=== PATIENT | female | born 1995 | race African-American/Black ===

== ENCOUNTER 2018-07-26 08:30 | Emergency (ER) | payer OTHER ==
[2018-07-26 08:38] VITALS: BP 110/71
--- NOTE | 2018-07-26 09:06 | ER Document Report ---
HPI - HPI Patient complains to provider of: Left shoulder injury Onset: This morning - 05 29 Pain Level: 4 Context: 22-year-old female that works for [employer] [place] [facility] had a large hook hit her left posterior shoulder. She is complaining of pain and stinging to the area. She denies . Associated Symptoms: None Exacerbated by: Movement Relieved by: Denies Similar symptoms previously: No Recently seen / treated by doctor: No - ROS ROS below otherwise negative: Yes Systems Reviewed and Negative: Yes All other systems reviewed and negative - REPRODUCTIVE Reproductive: DENIES: : - MUSCULOSKELETAL Musculoskeletal: REPORTS: Extremity pain - left shoulder Past Medical History - General Information source: Patient - Social History Smoking Status: Never Smoker Chew tobacco use (# tins/day): No Frequency of alcohol use: None Drug Abuse: None Lives with: Family Family History: Reviewed & Not Pertinent Patient has suicidal ideation: No Patient has homicidal ideation: No - Medical History Medical History: Negative Renal/ Medical History: Denies: Hx Peritoneal Dialysis Surgical Hx: Negative Vertical Provider Document - CONSTITUTIONAL Agree With Documented VS: Yes Exam Limitations: No Limitations - INFECTION CONTROL TRAVEL OUTSIDE OF THE [place] IN LAST 30 DAYS: No - MUSCULOSKELETAL/EXTREMETIES Musculoskeletal/Extremeties: MAEW, FROM, Tender - soft tissue posterior shoulder , trapezius, No Edema. negative: Eccymosis - NEURO Level of Consciousness: Awake Motor/Sensory: No Motor Deficit, No Sensory Deficit - DERM Integumentary: No Rash Course - Re-evaluation Re-evalutation: 07/26/18 Final x-ray report is negative per rad, pt wants off work until tuesday - Vital Signs Vital signs: Temp Pulse Resp BP Pulse Ox 98.1 F 72 14 110/71 98 07/26/18 08:36 07/26/18 08:36 07/26/18 08:36 07/26/18 08:36 07/26/18 08:36 Discharge - Discharge Clinical Impression: Left shoulder contusion Condition: Good Disposition: HOME, SELF-CARE Instructions: Contusion ([facility]), Ibuprofen (General) ([facility]) Additional Instructions: motrin for pain to er any concerns copy of negative imaging report given to you Prescriptions: Ibuprofen [Motrin 600 mg Tablet] 600 mg PO Q8HP PRN #30 tablet PRN Reason: Forms: Return to Work
[2018-07-26] MEDS ORDERED: IBUPROFEN 600 MG TABLET PO ONE (09:11)
--- NOTE | 2018-07-26 10:27 | RADIOLOGY REPORT (SQ) ---
EXAM DESCRIPTION: SHOULDER LEFT 2 OR MORE VIEWS COMPLETED DATE/TIME: 07/26/2018 10:05 am REASON FOR STUDY: hook hit scapula injury 3 days ago, continued pain COMPARISON: None. NUMBER OF VIEWS: Three views. TECHNIQUE: Internal rotation, external rotation, and Y view images acquired of the left shoulder. LIMITATIONS: None. FINDINGS: MINERALIZATION: Normal. BONES: No acute fracture or dislocation. No worrisome bone lesions. JOINTS: No dislocation. VISUALIZED LUNGS AND RIBS: No pneumothorax. No rib fracture. SOFT TISSUES: No radiopaque foreign body. OTHER: No other significant finding. IMPRESSION: NEGATIVE STUDY OF THE LEFT SHOULDER. NO RADIOGRAPHIC EVIDENCE OF ACUTE INJURY. TECHNICAL DOCUMENTATION: JOB ID: [id number] [employer]- All Rights Reserved Reading location - IP/workstation name: [email or web address]
== END 2018-07-26 10:46 | disposition home or self-care (01) ==
LOC: ER 08:30
DX: S40.012A Contusion of left shoulder, initial encounter (principal); W22.8XXA Striking against or struck by other objects, initial encounter; Y99.0 Civilian activity done for income or pay
CPT/HCPCS: 99283

== ENCOUNTER 2020-10-21 10:29 | Inpatient (IN) | payer MEDICAID ==
[2020-10-21] MEDS ORDERED: RINGERS SOLUTION,LACTATED 1,000 ML IV ONE (10:50)
[2020-10-21 11:37] LABS: ABSOLUTE BASOPHILS # (AUTO) 0.1 10^3/uL (0.0-0.2); ABSOLUTE LYMPHOCYTES (AUTO) 1.6 10^3/uL (0.5-4.7); ABSOLUTE MONOCYTES (AUTO) 0.8 10^3/uL (0.1-1.4); ABSOLUTE NEUT (AUTO) 4.1 10^3/uL (1.7-8.2); BASOPHILS % (AUTO) 0.9 % (0-2); EOSINOPHILS % (AUTO) 0.6 % (0-6); HEMATOCRIT 34.5 % (36.0-47.0); HEMOGLOBIN 11.8 g/dL (12.0-15.5); LYMPHOCYTES % (AUTO) 24.2 % (13-45); MEAN CORPUSCULAR HEMOGLOBIN 30.9 pg (27.0-33.4); MEAN CORPUSCULAR HGB CONC 34.3 g/dL (32.0-36.0); MEAN CORPUSCULAR VOLUME 90 fl (80-97); MONOCYTES % (AUTO) 11.6 % (3-13); PLATELET COUNT 227 10^3/uL (150-450); RED BLOOD COUNT 3.82 10^6/uL (3.72-5.28); RED CELL DISTRIBUTION WIDTH 17.1 % (11.5-14.0); SEGMENTED NEUTROPHILS % (AUTO) 62.7 % (42-78); TOTAL CELLS COUNTED % (AUTO) 100 %; WHITE BLOOD COUNT 6.5 10^3/uL (4.0-10.5)
[2020-10-21 12:03] LABS: ALBUMIN 3.6 g/dL (3.5-5.0); ALKALINE PHOSPHATASE 170 U/L (38-126); ANION GAP 11 (5-19); ASPARTATE AMINO TRANSFERASE 23 U/L (14-36); BILIRUBIN,DIRECT 0.1 mg/dL (0.0-0.4); BILIRUBIN,TOTAL 0.4 mg/dL (0.2-1.3); BLOOD UREA NITROGEN 7 mg/dL (7-20); CALCIUM 9.5 mg/dL (8.4-10.2); CARBON DIOXIDE 19 mmol/L (22-30); CHLORIDE 104 mmol/L (98-107); GLUCOSE 84 mg/dL (75-110); POTASSIUM 4.1 mmol/L (3.6-5.0); TOTAL PROTEIN 6.7 g/dL (6.3-8.2); URIC ACID 4.4 mg/dL (2.5-6.2)
[2020-10-21 12:04] LABS: URINE AMPHETAMINES SCREEN NEGATIVE; URINE BARBITURATES SCREEN NEGATIVE; URINE BENZODIAZEPINES SCREEN NEGATIVE; URINE COCAINE SCREEN NEGATIVE; URINE METHADONE SCREEN NEGATIVE; URINE PHENCYCLIDINE SCREEN NEGATIVE
[2020-10-21 12:11] LABS: URINE MARIJUANA (THC) SCREEN NEGATIVE
[2020-10-21] MEDS ORDERED: MISOPROSTOL 0.1 MG TABLET ONE ×2 (12:14→13:01)
[2020-10-21] MEDS ORDERED: MISOPROSTOL 0.1 MG TABLET PV ONE (12:15)
[2020-10-21] MEDS ORDERED: MISOPROSTOL 0.1 MG TABLET PO ONE (13:04)
--- NOTE | 2020-10-21 16:19 | Admission Physical ---
Datetime Report Generated by CPN: 10/21/2020 16:19 CURRENT ADMISSION Chief Complaint: Scheduled Induction of Labor Indication for Induction: Gestational HTN Admit Impression : Term, Intrauterine ; No Active Labor Admit Plan: Admit to Unit; Initiate Labor Protocol ALLERGIES Medication Allergies: No Medication Allergies: No Known Allergies (10/21/2020) Latex: No Latex Allergies OBSTETRICAL HISTORY EDC: 10/25/2020 00:00 : 1 Para: 0 Term: 0 : 0 SAB: 0 IAB: 0 Ectopic: 0 Livin Cesareans: 0 VBACs: 0 Multiple Births: 0 Gestational Diabetes: No Rh Sensitization: No Incompetent Cervix: No ANTHONY: No Infertility: No ART Treatment: No Uterine Anomaly: No IUGR: No Hx Previous C/S: No Macrosomia: No Hx Loss/Stillborn: No PIH: No Hx : No Placenta Previa/Abruption: No Depression/PP Depression: No PTL/PROM: No Post Hemorrhage: No Obstetrical History Comments: G1- Current GHTN SEE RECORDS Alcohol: No Marijuana : No Cocaine: No Other Illicit Drugs: No Cigarettes: Never Smoker. 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: No Heart Disease: No Hosp/Surgery: No Autoimmune Disorder: No Anesthetic Complications: No Kidney Disease: No Abnormal Pap Smear: No Neuro/Epilepsy: No Psychiatric Disorders: No Other Medical Diseases: No Hepatitis/Liver Disease: No Significant Family History: No Varicosities/Phlebitis: No Trauma/Violence : No Thyroid Dysfunction: No INFECTIOUS HISTORY Gonorrhea: No Genital Herpes: No Chlamydia: No Tuberculosis: No Syphilis: No Hepatitis: No HIV/AIDS Exposure: No Rash or Viral Illness: No HPV: No PHYSICAL EXAM General: Normal HEENT: Normal Neurologic: Normal Thyroid: Deferred Heart: Normal Lungs: Normal Breast: Deferred Back: Normal Abdomen: Normal Genitourinary Exam: Normal Extremities: Normal DTRs: Normal Pelvic Type: Adequate Vital Signs: Reviewed Details Vital Signs: some mild range BPs VAGINAL EXAM Dilatation: 1 Effacement: 70 Station: -2 Contraction Comments: q2 mins MEMBRANES Pooling: Negative Membranes: Intact FETUS A EGA: 39.3 Monitoring: External US FHR- Baseline: 140 Variability: Moderate 6-25bpm Accelerations: 15X15 Decelerations: None FHR Category: Category I Estimated Weight (gm): 3200 Presentation: Vertex Admit Comment: at 39w3d with mild GHTN presented for IOL. received cytotec 3 hours ago. P: continue IOL, anticipate PLANS FOR LABOR AND DELIVERY Labor and Delivery: None Pain Management: Epidural Feeding Preference: Both Benefit of Breast Feed Discussed: Yes Circumcision: N/A INFORMED CONSENT Assignment: Katie Lechuga MD Signature: with User ID: [email or web address] : with User ID: [email or web address]
[2020-10-21 17:25] LABS: UR PRO/CREAT RATIO RESULT 0.2 mg/mg (0.0-0.2); URINE PROTEIN 15.1 mg/dL (<12)
[2020-10-21] MEDS ORDERED: DINOPROSTONE 10 MG VAGINAL INSERT.SR PV ONE (18:30)
[2020-10-21] MEDS ORDERED: DINOPROSTONE 10 MG VAGINAL INSERT.SR ONE (20:50)
[2020-10-22] MEDS ORDERED: OXYTOCIN/0.9 % SODIUM CHLORIDE 30 UNIT/500 ML RTUINJ ONE (09:39)
[2020-10-22] MEDS ORDERED: MISOPROSTOL 0.2 MG TABLET ONE (09:39)
[2020-10-22] MEDS ORDERED: LIDOCAINE 1% INJ-PF (10 MG/ML) 30 ML SDV ONE (09:39)
[2020-10-22] MEDS ORDERED: OXYTOCIN 10 UNIT/ML VIAL ONE (09:39)
[2020-10-22] MEDS ORDERED: PROMETHAZINE HCL INJ 25 MG/1 ML VIAL IV ONE (15:52)
[2020-10-22] MEDS ORDERED: NALBUPHINE HCL INJ 10 MG/1 ML AMPULE INJ ONE (15:52)
[2020-10-22] MEDS ORDERED: NALBUPHINE HCL INJ 10 MG/1 ML AMPULE ONE (15:55)
[2020-10-22] MEDS ORDERED: PROMETHAZINE HCL INJ 25 MG/1 ML VIAL ONE (15:55)
--- NOTE | 2020-10-22 16:46 | L&D Progress Notes ---
PROGRESS NOTES Datetime Report Generated by CPN: 10/22/2020 16:46 PROGRESS NOTE Plan: Continue Present Management Comment: Cervix per RN, pt c/o pain, Nubain given VAGINAL EXAM Dilatation: 1 Effacement: 70 Station: -2 Contractions: q2 mins LAST VAGINAL EXAM-NURSING Nursing Exam Dilitation: 1.0 Nursing Exam Effacement: 60 Nursing Exam Station: -2 Nursing Exam Contractions: RN palpating contractions; toco not tracing well due to patient position MEMBRANES Pooling: Negative Membranes: Intact FETUS A : 39+3 Estimated Weight (gm): 3200 Presentation: Vertex SIGNATURE SIGNATURE: ,[id number] Assignment: Guille Mcwilliams MD Signature: with User ID: [email or web address] : with User ID: [email or web address]
[2020-10-22] MEDS ORDERED: DINOPROSTONE 10 MG VAGINAL INSERT.SR ONE (19:54)
[2020-10-22] MEDS ORDERED: DINOPROSTONE 10 MG VAGINAL INSERT.SR PV PRN (20:00)
[2020-10-22] MEDS ORDERED: ZOLPIDEM TARTRATE 5 MG TABLET PO ONE (23:20)
[2020-10-22] MEDS ORDERED: ZOLPIDEM TARTRATE 5 MG TABLET ONE (23:22)
[2020-10-23 07:17] LABS: ABSOLUTE LYMPHOCYTES (AUTO) 0.9 10^3/uL (0.5-4.7); ABSOLUTE MONOCYTES (AUTO) 0.8 10^3/uL (0.1-1.4); ABSOLUTE NEUT (AUTO) 7.8 10^3/uL (1.7-8.2); BASOPHILS % (AUTO) 0.4 % (0-2); EOSINOPHILS % (AUTO) 0.1 % (0-6); HEMATOCRIT 35.2 % (36.0-47.0); HEMOGLOBIN 11.9 g/dL (12.0-15.5); LYMPHOCYTES % (AUTO) 9.6 % (13-45); MEAN CORPUSCULAR HEMOGLOBIN 29.7 pg (27.0-33.4); MEAN CORPUSCULAR HGB CONC 33.9 g/dL (32.0-36.0); MEAN CORPUSCULAR VOLUME 88 fl (80-97); MONOCYTES % (AUTO) 8.1 % (3-13); PLATELET COUNT 223 10^3/uL (150-450); RED BLOOD COUNT 4.01 10^6/uL (3.72-5.28); SEGMENTED NEUTROPHILS % (AUTO) 81.8 % (42-78); TOTAL CELLS COUNTED % (AUTO) 100 %; WHITE BLOOD COUNT 9.5 10^3/uL (4.0-10.5)
[2020-10-23 07:31] LABS: ALBUMIN 3.8 g/dL (3.5-5.0); ALKALINE PHOSPHATASE 200 U/L (38-126); ANION GAP 13 (5-19); ASPARTATE AMINO TRANSFERASE 29 U/L (14-36); BILIRUBIN,DIRECT 0.2 mg/dL (0.0-0.4); BILIRUBIN,TOTAL 0.6 mg/dL (0.2-1.3); BLOOD UREA NITROGEN 5 mg/dL (7-20); CALCIUM 9.7 mg/dL (8.4-10.2); CARBON DIOXIDE 18 mmol/L (22-30); CHLORIDE 103 mmol/L (98-107); GLUCOSE 106 mg/dL (75-110); POTASSIUM 3.8 mmol/L (3.6-5.0); URIC ACID 5.5 mg/dL (2.5-6.2)
[2020-10-23] MEDS ORDERED: NALBUPHINE HCL INJ 10 MG/1 ML AMPULE ONE (08:16)
[2020-10-23] MEDS ORDERED: NALBUPHINE HCL INJ 10 MG/1 ML AMPULE INJ ONE (08:26)
[2020-10-23] MEDS ORDERED: OXYTOCIN/0.9 % SODIUM CHLORIDE 30 UNIT/500 ML RTUINJ ONE ×2 (09:02→21:02)
[2020-10-23] MEDS ORDERED: OXYTOCIN/0.9 % SODIUM CHLORIDE 30 UNIT/500 ML RTUINJ IV PRN ×2 (09:24→22:36)
[2020-10-23] MEDS ORDERED: EPHEDRINE SULFATE INJ 50 MG/1 ML AMPULE ONE (09:28)
[2020-10-23] MEDS ORDERED: ROPIVACAINE HCL 0.2% INJ/PF (2 MG/ML) 20 ML SDV ONE (09:29)
[2020-10-23] MEDS ORDERED: FENTANYL/BUPIVACAINE/NS/PF 0 MCG/0 ML RTUINJ EPI ONE (09:29)
[2020-10-23] MEDS ORDERED: OXYTOCIN 10 UNIT/ML VIAL ONE ×2 (09:32→21:02)
[2020-10-23] MEDS ORDERED: MISOPROSTOL 0.1 MG TABLET ONE (09:33)
--- NOTE | 2020-10-23 10:39 | L&D Progress Notes ---
PROGRESS NOTES Datetime Report Generated by CPN: 10/23/2020 10:38 PROGRESS NOTE Impression: Normal Progression of Labor Procedures: Artificial ROM Plan: Continue Present Management; Induction; Cervical Ripening Informed Consent Obtained: Vaginal Delivery; Induction of Labor; Risks, Benefits and Alternatives Discussed Vital Signs : Reviewed Comment: Cooks catheter placed. cvx 2/80/-2, pitocin for IOL VAGINAL EXAM Dilatation: 1 Effacement: 70 Station: -2 Contractions: q2 mins LAST VAGINAL EXAM-NURSING Nursing Exam Dilitation: 2.0 Nursing Exam Effacement: 80 Nursing Exam Station: -2 Nursing Exam Contractions: epidural insertion complete. Pt to left tilt MEMBRANES Pooling: Negative Membranes: Intact FETUS A FHR - Baseline: 145 Monitoring: External US Variability: Moderate 6-25bpm Accelerations: 15X15 Decelerations: None FHR Category: Category I : 39+3 Estimated Weight (gm): 3200 Presentation: Vertex SIGNATURE SIGNATURE: [id number];[id number] Assignment: Guille Mcwilliams MD Signature: with User ID: [email or web address] : with User ID: [email or web address]
[2020-10-23 15:31] LABS: ABSOLUTE LYMPHOCYTES (AUTO) 1.5 10^3/uL (0.5-4.7); ABSOLUTE MONOCYTES (AUTO) 1.3 10^3/uL (0.1-1.4); ABSOLUTE NEUT (AUTO) 7.9 10^3/uL (1.7-8.2); BASOPHILS % (AUTO) 0.2 % (0-2); HEMATOCRIT 33.1 % (36.0-47.0); HEMOGLOBIN 11.4 g/dL (12.0-15.5); LYMPHOCYTES % (AUTO) 13.5 % (13-45); MEAN CORPUSCULAR HGB CONC 34.5 g/dL (32.0-36.0); MEAN CORPUSCULAR VOLUME 90 fl (80-97); MONOCYTES % (AUTO) 12.1 % (3-13); PLATELET COUNT 209 10^3/uL (150-450); RED BLOOD COUNT 3.68 10^6/uL (3.72-5.28); RED CELL DISTRIBUTION WIDTH 17.2 % (11.5-14.0); SEGMENTED NEUTROPHILS % (AUTO) 74.2 % (42-78); TOTAL CELLS COUNTED % (AUTO) 100 %; WHITE BLOOD COUNT 10.7 10^3/uL (4.0-10.5)
[2020-10-23] MEDS ORDERED: GENTAMICIN SULFATE INJ 80 MG/2 ML VIAL IV ONE (17:03)
[2020-10-23] MEDS ORDERED: AMPICILLIN SOD INJ 2 GM VIAL ONE (17:03)
[2020-10-23 17:09] LABS: APPEARANCE,URINE SLIGHTLY-CLOUDY; BILIRUBIN,URINE NEGATIVE (NEGATIVE); COLOR,URINE YELLOW; GLUCOSE, URINE NEGATIVE (NEGATIVE); KETONES,URINE 80 mg/dL (NEGATIVE); LEUKOCYTE ESTERASE,URINE MODERATE (NEGATIVE); NITRITE,URINE NEGATIVE (NEGATIVE); PROTEIN,URINE 100 mg/dL (NEGATIVE); URINE SPECIFIC GRAVITY 1.018
[2020-10-23] MEDS ORDERED: FENTANYL/BUPIVACAINE/NS/PF 300 MCG/150 ML RTUINJ EPI ONE (17:20)
[2020-10-23] MEDS ORDERED: AMPICILLIN SOD INJ 2 GM VIAL IV SCH (18:00)
[2020-10-23] MEDS ORDERED: AMPICILLIN SOD INJ 2 GM VIAL IM SCH (18:00)
[2020-10-23] MEDS ORDERED: WATER IV ONE (19:00)
[2020-10-23] MEDS ORDERED: DEXTROSE 5% IV ONE (19:00)
[2020-10-23] MEDS ORDERED: GENTAMICIN SULFATE IV ONE (19:00)
[2020-10-23] MEDS ORDERED: CEFAZOLIN 2 GM/D5W RTU 2 GM/50 ML RTUPB IV ONE (20:49)
[2020-10-23] MEDS ORDERED: METHYLERGONOVINE MALEATE INJ/PF 0.2 MG/1 ML AMPULE ONE (20:49)
[2020-10-23] MEDS ORDERED: CITRIC ACID/SODIUM CITRATE ORAL SOLN 15 ML UDCUP ONE (20:49)
[2020-10-23] MEDS ORDERED: MISOPROSTOL 0.2 MG TABLET ONE (20:49)
--- NOTE | 2020-10-23 20:50 | L&D Progress Notes ---
PROGRESS NOTES Datetime Report Generated by CPN: 10/23/2020 20:50 PROGRESS NOTE Impression: Arrest of Dilatation/Descent Procedures: Artificial ROM Plan: Deliver- Section Informed Consent Obtained: Section Delivery; Risks, Benefits and Alternatives Discussed Vital Signs : Reviewed Comment: tachy with variables. Known chorio dx and treated earlier with Amp/Gent. Now with pushing for 4 hours and Arrest at c/c/+2 with significant caput. Reviewed r/b/a to proceed with section and patient desires to proceed with section. COnsents obtained. VAGINAL EXAM Dilatation: 1 Effacement: 70 Station: -2 Contractions: q2 mins LAST VAGINAL EXAM-NURSING Nursing Exam Dilitation: 10.0 Nursing Exam Effacement: 90 Nursing Exam Station: 1 Nursing Exam Contractions: pitocin decreased to 10mu due to tachysystole MEMBRANES Pooling: Negative Membranes: Intact FETUS A FHR - Baseline: 145 Monitoring: External US Variability: Moderate 6-25bpm Accelerations: 15X15 Decelerations: None FHR Category: Category I : 39+3 Estimated Weight (gm): 3200 Presentation: Vertex SIGNATURE SIGNATURE: [id number];[id number] Assignment: Guille Mcwilliams MD Signature: with User ID: [email or web address] : with User ID: [email or web address]
[2020-10-23] MEDS ORDERED: ONDANSETRON HCL INJ/PF 4 MG/2 ML SDV ONE (21:02)
[2020-10-23] MEDS ORDERED: MORPHINE SULFATE 10 MG/ML INJ ONE (21:02)
[2020-10-23] MEDS ORDERED: MIDAZOLAM 2 MG/2 ML INJ ONE (21:02)
[2020-10-23] MEDS ORDERED: DIPHENHYDRAMINE HCL 50 MG/ML VIAL IV PRN (21:26)
[2020-10-23] MEDS ORDERED: MORPHINE SULFATE 10 MG/ML INJ IV PRN (21:26)
[2020-10-23] MEDS ORDERED: FENTANYL CITRATE INJ/PF 100 MCG/2 ML AMPUL IV PRN ×3 (21:26)
[2020-10-23] MEDS ORDERED: OXYCODONE-ACETAMINOPHEN 5-325 MG TABLET PO PRN ×3 (21:26→22:36)
[2020-10-23] MEDS ORDERED: PROMETHAZINE HCL INJ 25 MG/1 ML VIAL IV PRN ×3 (21:26→22:36)
[2020-10-23] MEDS ORDERED: MEPERIDINE HCL/PF INJ 25 MG/1 ML DISP.SYRIN IV PRN (21:26)
[2020-10-23] MEDS ORDERED: GENTAMICIN SULFATE INJ 80 MG/2 ML VIAL IV SCH (22:00)
[2020-10-23] MEDS ORDERED: ACETAMINOPHEN 1,000 MG/100 ML RTUPB IV ONE (22:35)
[2020-10-23] MEDS ORDERED: HYDROMORPHONE HCL INJ/PF 2 MG/ML AMPULE IV PRN (22:36)
[2020-10-23] MEDS ORDERED: SIMETHICONE 80 MG TAB.CHEW PO PRN (22:36)
[2020-10-23] MEDS ORDERED: ACETAMINOPHEN 1,000 MG/100 ML RTUPB IV PRN (22:36)
[2020-10-23] MEDS ORDERED: MEASLES,MUMPS&RUBELLA VACC/PF 0.5 ML VIAL SUBCUT PRN (22:36)
[2020-10-23] MEDS ORDERED: DIPH/PERTUSS(ACELL)/TETANUS VAC/PF 0.5 ML SYR (>=10YO) IM PRN (22:36)
[2020-10-23] MEDS ORDERED: RINGERS SOLUTION,LACTATED 1,000 ML IV PRN (22:36)
[2020-10-23] MEDS ORDERED: ACETAMINOPHEN 325 MG TABLET PO PRN (22:36)
--- NOTE | 2020-10-23 22:36 | Operative Report ---
Operative Report DATE OF SURGERY: 10/23/20 PREOPERATIVE DIAGNOSIS: Arrest of Descent, Chorioamnionitis, GHTN, Prolonged IO L, Anemia POSTOPERATIVE DIAGNOSIS: Asynclytic and Transverse arrest, Nuchal Cord, Chorioamnionitis, tachycardia, High spinal, PP Hemorrhage, Meconium in amniotic fluid OPERATION: Primary section SURGEON: JODY HESS ANESTHESIA: Spinal TISSUE REMOVED OR ALTERED: placenta and cord, sent to pathology COMPLICATIONS: Transverse/asynclitic arrest, high spinal ESTIMATED BLOOD LOSS: 700ml QUANTITATIVE BLOOD LOSS: 1,520 INTRAOPERATIVE FINDINGS: time of 2130, weight 7#11oz, Apgars 4/8. right Transverse deep in pelvis arrest and asynclitic with nuchal cord. High spinal noted and managed by Anesthesia. Normal bilateral tubes and ovaries. Normal uterus. Uterine extension on the right repaired and good hemostasis of uterine incision. However, due to location of extension will evaluate ureteral patency with CT scan. Meconium noted upon uterine incision - light meconium PROCEDURE: Anesthesia provider: [Chris Nuñez CRNA] Urine output: [100ml] IV fluids: [1000ml] Indications: [24yo at 39+5ega presented on 10/21 for IOL due to GHTN. IOL was initiated with cervidil and cvx 1/50/-3. She received cervdil on 10/21 then pitocin throughout the day on 10/22. Cervical exams documented unchanged throughout the cervidil and pitocin. ON 10/22 at night she reveived a 2nd dose of cervidil. Upon assuming care this am she was 2/70/-2 and reviewed recommendation for cooks catheter and pitocin. She agreed and cooks catheter was placed at approximately 0900 and then at 1310 both bulbs of cooks catheter were noted to be in vagina and cooks catheter was removed. She developed a fever after AROM and antipyretics given and Antibiotics initiated. COVID test performed and negative. At this time cvx was 5/80/-2 and AROM performed with clear fluid. She proceeded to achieve c/c/+1 at 1622 and began pushing at 1645. For the first hour pushing was ineffective due to recent dosing of epidural. After that time patient began to make progress and pushed until 2029. Reviewed with patient concerns for no further progress over the last 45 minutes to 1 hour and recommendations for section. The risks, benefits, alternatives were reviewed and she desires to proceed with planned procedure. ] Procedure: The patient was taken to the operating room where spinal anesthesia was obtained and found to be adequate but then noted to be a high spinal. She was then prepped and draped in the normal sterile fashion and placed in the dorsal supine position with a leftward tilt. A Pfannenstiel skin incision was then made and carried through to the underlying layers of the fascia with the scalpel. The fascia was incised in the midline and the incision extended laterally with the Jeffrey scissors. The superior aspect of the fascial incision was then grasped with Delmar clamps elevated and the underlying rectus muscles dissected off [bluntly]. Attention was then turned to the inferior aspect of the fascial incision which in a similar fashion was grasped, tented up with Delmar clamps, and the rectus muscles dissected off [bluntly]. The rectus muscles were then in the midline and the peritoneum at the amount identified and entered [bluntly]. The peritoneal incision was then extended superiorly and inferiorly with good visualization of the bladder. The bladder blade was inserted and the vesicouterine peritoneum identified grasped with Macanese pickups and entered sharply with the Metzenbaum scissors. This incision was then extended laterally with the Metzenbaum scissors and a bladder flap created digitally. The bladder blade was then reinserted and the lower uterine segment incised in a transverse fashion with the scalpel. The uterine incision was then extended bluntly. The bladder blade was removed and the 's head was delivered from transverse arrest and asynclitic presentation atraumatically. The nose and mouth were suctioned and the cord doubly clamped and cut. And the infant was handed off to waiting pediatrics staff. The placenta was then delivered spontaneously and the uterus exteriorized and cleared of all clots and debris. The uterine incision was then repaired with 1- 0 Vicryl in a running locked fashion and deep extension of uterine incision to the right noted which was repaired in a separate suture. A second layer of the same suture was used to obtain hemostasis via imbrication of the initial layer. The bladder flap was then repaired with 3-0 chromic in a running fashion. The uterus was returned to the patient's abdomen and Surgicel was placed for additional hemostasis. The gutters were cleared of all clots and debris. All operative sites were noted to be hemostatic. The fascia was reapproximated with 0 Vicryl in a running fashion from each lateral edge to the midline. The skin was closed with 3-0 Monocryl in a running subcuticular fashion with overlying Dermabond for additional dressing as well as wound closure. The patient tolerated the procedure well. Sponge lap needle and instrument counts are correct times 2. 2 g of Ancef were given prior to skin incision. The patient was taken to the recovery area awake and in stable condition.
[2020-10-23] MEDS ORDERED: FENTANYL CITRATE INJ/PF 100 MCG/2 ML AMPUL ONE (23:22)
[2020-10-23] MEDS: AMPICILLIN SODIUM 2 GM in NORMAL SALINE 100 ML IV SCH (23:30)
[2020-10-23 23:32] LABS: HEMATOCRIT 28.3 % (36.0-47.0); HEMOGLOBIN 9.6 g/dL (12.0-15.5); MEAN CORPUSCULAR HEMOGLOBIN 30.1 pg (27.0-33.4); MEAN CORPUSCULAR VOLUME 89 fl (80-97); PLATELET COUNT 195 10^3/uL (150-450); RED BLOOD COUNT 3.19 10^6/uL (3.72-5.28); RED CELL DISTRIBUTION WIDTH 16.8 % (11.5-14.0); WHITE BLOOD COUNT 17.2 10^3/uL (4.0-10.5)
[2020-10-23 23:45] LABS: ALBUMIN 2.5 g/dL (3.5-5.0); ALKALINE PHOSPHATASE 141 U/L (38-126); ANION GAP 10 (5-19); ASPARTATE AMINO TRANSFERASE 44 U/L (14-36); BILIRUBIN,DIRECT 0.1 mg/dL (0.0-0.4); BILIRUBIN,TOTAL 0.5 mg/dL (0.2-1.3); BLOOD UREA NITROGEN 8 mg/dL (7-20); CALCIUM 8.4 mg/dL (8.4-10.2); CARBON DIOXIDE 18 mmol/L (22-30); CHLORIDE 105 mmol/L (98-107); GLUCOSE 117 mg/dL (75-110); POTASSIUM 3.7 mmol/L (3.6-5.0); TOTAL PROTEIN 4.7 g/dL (6.3-8.2)
[2020-10-24] MEDS ORDERED: CEFAZOLIN 2 GM/D5W RTU 2 GM/50 ML RTUPB IV ONE
[2020-10-24] MEDS: KETOROLAC TROMETHAMINE INJ/PF 30 MG/1 ML SDV IV SCH ×4 (00:18→21:25)
[2020-10-24] MEDS ORDERED: KETOROLAC TROMETHAMINE INJ/PF 30 MG/1 ML SDV ONE (00:18)
--- NOTE | 2020-10-24 00:55 | RADIOLOGY REPORT (SQ) ---
CT ABDOMEN AND PELVIS WITH AND WITHOUT INTRAVENOUS CONTRAST: 10/23/2020 11:40 PM SENIOR ELECTRONICS ENGINEER HISTORY: 24-year old with concern for patency of the right ureter after recent section. COMPARISON: None available TECHNIQUE: Axial contiguous images were obtained from the lung bases to the proximal femurs with and without intravenous intravenous contrast administered. Multiphasic imaging was obtained through the kidneys, and delayed phase imaging was obtained through the kidneys and bladder. Sagittal and coronal reconstructions were also obtained and reviewed. This exam was performed according to our departmental dose-optimization program, which includes automated exposure control, adjustment of the mA and/or KV according to the patient's size and/or use of iterative reconstruction technique. FINDINGS: No focal consolidative airspace opacities are seen. No discrete pleural effusions are seen. The visualized hepatic parenchyma is the lung attenuation. No focal enhancing lesion is seen. The gallbladder demonstrates no evidence of calcified gallstones. The spleen is normal in size. The pancreas is unremarkable. The bilateral adrenal glands appear unremarkable. There is moderate bilateral hydronephrosis without evidence of a renal or ureteral calculus apparent. The mid to distal left ureter is not well-opacified on the delayed imaging. No gross contrast extravasation is seen within the ureters. There is a punctate calcification seen at the base of the bladder which is likely a phlebolith. The visualized portions of the right ureter appear unremarkable. The urinary bladder is decompressed by Rogers catheter. There is nonspecific gallbladder wall thickening present. The uterus is enlarged consistent with state. There is air and increased density at the endometrial canal most likely from recent section and . There are some increased density within the vaginal canal suggesting hemorrhage. The stomach is moderately distended. The small bowel loops appear unremarkable. No pericolonic inflammatory stranding is seen. There is trace free fluid and trace pneumoperitoneum, also likely from recent section. No drainable fluid collection is seen. No significantly enlarged lymph nodes are seen in the abdomen or pelvis. Review of the bone show no evidence of any suspicious lytic or blastic lesions. There is air seen along the paraspinal soft tissues, likely from recent epidural. IMPRESSION: There are postsurgical changes from recent section noted. The visualized portions of the right ureter unremarkable. The mid to distal left ureter is not visualized. No contrast extravasation is seen. There is moderate bilateral hydroureteronephrosis suggested.
--- NOTE | 2020-10-24 01:32 | Delivery Summary ---
Del Sum A-C Datetime Report Generated by CPN: 10/24/2020 01:31 DELIVERY PERSONNEL DELIVERY PERSONNEL: [id number] Delivery Doctor:: Leilani Skelton MD ASSEMBLYMAN OR WOMAN:: Checo Wheeler CRNA Direct Response Consultant:: Antonio Michele, RN [place]/TORCH OPERATOR: Bhavana Lepe, ST [place]/TORCH OPERATOR: Michael Domingo, MARINE CARGO INSPECTOR MATERNAL INFORMATION Delivery Anesthesia: Epidural; Spinal Medications After Delivery: Pitocin Bolus-Please Comment Delivery QBL: 1520 Maternal Complications: Chorioamnionitis; Maternal Fever LABOR SUMMARY EDC: 10/25/2020 00:00 No. Babies in Womb: 1 Attempted: No Labor Anesthesia: Epidural LABOR INFORMATION Reason for Induction: Gestational Hypertension Onset of Labor: 10/23/2020 13:10 Complete Dilatation: 10/23/2020 16:22 Cervical Ripening Agents: Cervidil Oxytocin: Induction Group B Beta Strep: negative Antibiotics # of Doses: 0 Name of Antibiotic Given: n/a MEMBRANES Membranes Rupture Method: Spontaneous Rupture of Membranes: 10/23/2020 13:10 Length of Rupture (hr): 8.35 Amniotic Fluid Color: Clear Amniotic Fluid Amount: Moderate Amniotic Fluid Odor: Normal STAGES OF LABOR Stage 1 hr: 3 Stage 1 min: 12 Stage 2 hr: 5 Stage 2 min: 9 Stage 3 hr: 0 Stage 3 min: 1 Total Time in Labor hr: 8 Total Time in Labor min: 22 VAGINAL DELIVERY Episiotomy: None Laceration #1: Perineal Laceration Extension #1: N/A Laceration Repair: Yes Laceration Repair Note: 0ne figure of 8 vicryl CSECTION DELIVERY Primary Indication: Arrest of Descent Other Primary Indication: Chorio Other Secondary Indication: tachycardia CSection Urgency: Non-Scheduled CSection Incidence: Primary Labor: Labor Elective: N/A CSection Incision: Lower Uterine Transverse BABY A INFORMATION Delivery Date/Time: 10/23/2020 21:31 Method of Delivery: Nurse Controlled Delivery: No Born in Route : No : N/A Forceps: N/A Vacuum Extraction: N/A Shoulder Dystocia : No PRESENTATION/POSITION BABY A Presentation: Cephalic Breech Presentation: N/A PLACENTA INFORMATION BABY A Placenta Delivery Time : 10/23/2020 21:32 Placenta Method of Delivery: Manual Removal Placenta Status: Delivered SCORES BABY A Heart Rate 1 min: >100 bpm Resp Effort 1 min: Absent Reflex Irritability 1 min: Grimace Muscle Tone 1 min: Some Flexion of Extremities Color 1 min: Blue/Pale SCORE 1 MIN: 4 Heart Rate 5 min: >100 bpm Resp Effort 5 min: Slow, Irregular Reflex Irritability 5 min: Cough or Sneeze or Pulls Away Muscle Tone 5 min: Active Motion Color 5 min: Body [place] Station, Extremities Blue SCORE 5 MIN: 8 INFANT INFORMATION BABY A Gestational Age at Delivery: 39.5 Gestational Status: Full Term- 39- 40.6 Weeks Outcome : Liveborn Infant Condition : Stable Infant Sex: Female IDENTIFICATION BABY A Infant Verification Date/Time: 10/23/2020 21:31 ID Band Number: [id number] Mother's Name Verified: Yes RN Verifying Infant: Arslan Gutierrez, RN/EThor Mueller, RN WEIGHT/LENGTH BABY A Infant Birthweight (gm): 3502 Infant Weight (lb): 7 Weight (oz): 12 Infant Length (in): 21.00 Infant Length (cm): 53.34 CORD INFORMATION BABY A No. Cord Vessels: 3 Nuchal Cord : Around Neck x1, Loose Cord Blood Taken: Yes-For Eval (Mom's Blood Type - or O+) Infant Suction: Mouth; Nose ASSESSMENT BABY A Infant Complications: None Physical Findings at Delivery: Within Normal Limits Skin to Skin: No Transferred To: Remains with Mother BABY B INFORMATION : N/A SIGNATURES Signature: with User ID: [email or web address] : Juan was personally available for consultation and serving as supervising physician for the MLP.
--- NOTE | 2020-10-24 01:32 | Birth Certificate Data ---
Cert Data Datetime Report Generated by SHENA: 10/24/2020 01:31 CERTIFICATE DATA Delivery Provider: Leilani Skelton MD (10/23/2020 21:00:Antonio Michele RN) 47a. Care: Yes (10/21/2020 10:49:Cyn Camp RN) 47b. Date of First Visit: 03/17/2020 00:00 (10/21/2020 10:49:Cady Wakefield RN) 47c. Date of Last Visit: 10/20/2020 00:00 (10/21/2020 10:49:Cady Wakefield RN) 47d. Number of Visits: 14 (10/21/2020 10:49:Cady Wakefield RN) 48a. Number of Prev Live Births: 0 (10/21/2020 10:49:Cady Wakefield RN) 48b. Now Livin (10/21/2020 10:49:Cady Wakefield RN) 48c. Live Births Now : 0 (10/21/2020 10:49:QS system process) 48e. Losses: 0 (10/21/2020 10:49:Cady Wakefield RN) RISK FACTORS IN THIS 49a. Diabetes: No (10/21/2020 10:49:Cyn Camp RN) 49b. Hypertension: No (10/21/2020 10:49:Cyn Camp RN) Type of Hypertension: Gestational (PIH, Pre-eclampsia) (10/21/2020 10:49:Cyn Camp RN) 49c. Previous Births: 0 (10/21/2020 10:49:Cady Wakefield RN) 49d. Stillborns: No (10/21/2020 10:49:Cyn Camp RN) 49d. IUGR: No (10/21/2020 10:49:Cyn Camp RN) 49e. Infertility Treatment: No (10/21/2020 10:49:Cyn Camp RN) 49f. Previous Cesareans: 0 (10/21/2020 10:49:Cady Wakefield RN) Mother's Height 50b. Height Inches: 65 (10/21/2020 10:54:QS system process) Mother's Weight 51a. Pre- Weight (lbs): 156 (10/21/2020 10:49:Cady Wakefield RN) 51b. Weight at Delivery (lbs): 213 (10/24/2020 00:41:QS system process) 52. Dt Last Normal Menses Began: 01/19/2020 00:00 (10/21/2020 10:49:Cady Wakefield RN) Infections Present/Treated 53a. Gonorrhea: No (10/21/2020 10:49:Cyn Camp RN) Results this Hospital Visit : Negative (10/21/2020 10:49:Cady Wakefield RN) 53b. Syphilis: No (10/21/2020 10:49:Cyn Camp RN) Results this Hospital Visit: NONREACTIVE (10/21/2020 11:20:QS system process) 53c. Chlamydia: No (10/21/2020 10:49:Cyn Camp RN) Results this Hospital Visit: Negative (10/21/2020 10:49:Cady Wakefield RN) 53d. Hepatitis B: No (10/21/2020 10:49:Cyn Camp RN) Results this Hospital Visit: Negative (10/21/2020 10:49:Cady Wakefield RN) 53e. Hepatitis C: Negative (10/21/2020 10:49:Cady Wakefield RN) 53h. Mother Tested for HBsAG: Yes (10/21/2020 10:49:Cady Wakefield RN) 53i. Date Tested: 05/12/2020 00:00 (10/21/2020 10:49:Cady Wakefield RN) 53j. Test Result: Negative (10/21/2020 10:49:Cady Wakefield RN) Obstetric Procedures 54a, b, c. Obstetric Procedures: Ultrasound (10/21/2020 10:49:Cady Wakefield RN) Cigarette Smoking Cigarette Smoking: Never Smoker. [id number] (10/21/2020 10:49:Cyn Camp RN) 55a. 3 Months Before Preg - Ci (10/21/2020 10:49:Antonio Michele RN) 55a. Packs: 0 (10/21/2020 10:49:Antonio Michlee RN) 55b. 1st Trimester of Preg- Ci (10/21/2020 10:49:Antonio Michele RN) 55b. Packs: 0 (10/21/2020 10:49:Antonio Michele RN) 55c. 2nd Trimester of Preg- Ci (10/21/2020 10:49:Antonio Michele RN) 55c. Packs: 0 (10/21/2020 10:49:Antonio Michele RN) 55d. 3rd Trimester of Preg- Ci (10/21/2020 10:49:Antonio Michele RN) 55d. Packs: 0 (10/21/2020 10:49:Antonio Michele RN) Onset of Labor 56a. PROM >12 Hrs: 8.35 (10/21/2020 10:49:QS system process) 56b. Precipitous Labor <3 Hrs: 8 (10/21/2020 10:49:QS system process) 56c. Prolonged Labor > 20 Hrs: 8 (10/21/2020 10:49:QS system process) 57a. Induction of Labor: Induction (10/21/2020 10:49:Antonio Michele RN) 57a. Induction of Labor: Cervidil (10/22/2020 20:00:Antonio Michele RN) 57f. Mat Chorio or Temp >100.4: 100.1 (10/21/2020 10:49:Jackelyn Gutierrez RN) 57g. Moderate/Heavy Meconium: Clear (10/23/2020 13:10:Татьяна Noyola RN) 57h. Intolerance of Labor: Arrest of Descent (10/21/2020 10:49:Antonio Michele RN) : Chorio (10/21/2020 10:49:Antonio Michele RN) : tachycardia (10/21/2020 10:49:Antonio Michele RN) 57i. Epidural/Spinal Anesthesia: Epidural (10/21/2020 10:49:Antonio Michele RN) Method of Delivery 58a. Forceps - Unsuccessful A: N/A (10/21/2020 10:49:Jackelyn Gutierrez RN) 58b. Vacuum - Unsuccessful A: N/A (10/21/2020 10:49:Jackelyn Gutierrez RN) 58c. Presentation at 58c. Presentation at - A : N/A (10/21/2020 10:49:Antonio Michele RN) 58c. Presentation at - A : Cephalic (10/23/2020 15:51:Татьяна Noyola RN) Final Route and Method of Del 58d. Baby A Route/Delivery: (10/21/2020 10:49:Jackelyn Gutierrez RN) 58e. Trial of Labor Attempted: No (10/21/2020 10:49:Antonio Michele RN) 58e. Trial of Labor Attempted A: N/A (10/21/2020 10:49:Jackelyn Gutierrez RN) 58e. Trial of Labor Attempted B: N/A (10/21/2020 10:49:Antonio Michele RN) Maternal Morbidity 59b. 3rd or 4th Degree Lacs: Perineal (10/21/2020 10:49:Guille Mcwilliams MD ([facility])) Birthweight Baby A: 3502 (10/21/2020 10:49:Alayna Chavez RN) 60a. Pounds : 7 (10/21/2020 10:49:QS system process) 60b. Ounces: 12 (10/21/2020 10:49:QS system process) 61. GA at Delivery Baby A: 39.5 (10/21/2020 10:49:Jackelyn Gutierrez RN) : Full Term- 39- 40.6 Weeks (10/21/2020 10:49:QS system process) 62a. 5 Minute Baby A: 8 (10/21/2020 10:49:QS system process)
[2020-10-24] MEDS: GENTAMICIN SULFATE IV SCH ×3 (01:47→21:18)
[2020-10-24] MEDS: DEXTROSE 5% IV SCH ×3 (01:47→21:18)
[2020-10-24] MEDS: WATER IV SCH ×3 (01:47→21:18)
[2020-10-24] MEDS: OXYCODONE-ACETAMINOPHEN 5-325 MG TABLET PO PRN ×4 (04:15→18:27)
[2020-10-24] MEDS: AMPICILLIN SODIUM 2 GM in NORMAL SALINE 100 ML IV SCH ×3 (06:16→18:26)
[2020-10-24 07:42] LABS: HEMATOCRIT 24.4 % (36.0-47.0); HEMOGLOBIN 8.4 g/dL (12.0-15.5); MEAN CORPUSCULAR HEMOGLOBIN 31.2 pg (27.0-33.4); MEAN CORPUSCULAR HGB CONC 34.7 g/dL (32.0-36.0); MEAN CORPUSCULAR VOLUME 90 fl (80-97); PLATELET COUNT 191 10^3/uL (150-450); RED BLOOD COUNT 2.71 10^6/uL (3.72-5.28); RED CELL DISTRIBUTION WIDTH 17.3 % (11.5-14.0); WHITE BLOOD COUNT 19.1 10^3/uL (4.0-10.5)
[2020-10-24] MEDS ORDERED: FERRIC CARBOXYMALTOSE INJ 750 MG/15 ML VIAL IV SCH (08:45)
--- NOTE | 2020-10-24 09:53 | PDOC PROGRESS REPORT ---
Subjective-OB Progress Note for:: 10/24/20 Subjective: Doing well, no c/o feeling good, good pain relief, baby in NICU Physical Exam (OB) Vital Signs: Temp Pulse Resp BP Pulse Ox 97.9 F 104 H 16 125/55 L 97 10/24/20 07:16 10/24/20 07:16 10/24/20 07:16 10/24/20 07:16 10/24/20 07:16 Intake & Output 10/23/20 10/24/20 10/25/20 06:59 06:59 06:59 Intake Total 1104.875 Output Total 700 Balance 404.875 - PIH/Pre-Eclampsia DTR's: 2 + Clonus: Negative Headache: Absent Epigastric Pain: No Visual Changes: No - Dressing Removed: No Incision: Dressing Closure Type: medipore t - Maternal Morbidity 59. Maternal Morbidity (serious complications experinced by the mother associated with labor and delivery: None of the above - Lochia Lochia Amount: Scant < 10 ml Lochia Color: Rubra/Red - Abdomen Fundal Description: Firm, Midline Fundal Height: u/u - u/2 Objective-Diagnostic Laboratory: 10/24/20 06:28 10/23/20 23:19 10/23/20 10/23/20 10/23/20 15:00 16:49 23:19 WBC 10.7 H 17.2 H RBC 3.68 L 3.19 L Hgb 11.4 L 9.6 L Hct 33.1 L 28.3 L MCV 90 89 MCH 31.0 30.1 MCHC 34.5 34.0 RDW 17.2 H 16.8 H Plt Count 209 195 Seg Neutrophils % 74.2 Sodium Potassium Chloride Carbon Dioxide Anion Gap BUN Creatinine Est GFR ( Amer) Glucose Calcium Total Bilirubin AST Alkaline Phosphatase Total Protein Albumin Urine Color YELLOW Urine Appearance SLIGHTLY-CLOUDY Urine pH 6.0 Ur Specific [place] 1.018 Urine Protein 100 H Urine Glucose (UA) NEGATIVE Urine Ketones 80 H Urine Blood LARGE H Urine Nitrite NEGATIVE Ur Leukocyte Esterase MODERATE H 10/23/20 10/24/20 23:19 06:28 WBC 19.1 H RBC 2.71 L Hgb 8.4 L Hct 24.4 L MCV 90 MCH 31.2 MCHC 34.7 RDW 17.3 H Plt Count 191 Seg Neutrophils % Sodium 132.9 L Potassium 3.7 Chloride 105 Carbon Dioxide 18 L Anion Gap 10 BUN 8 Creatinine 0.63 Est GFR ( Amer) > 60 Glucose 117 H Calcium 8.4 Total Bilirubin 0.5 AST 44 H Alkaline Phosphatase 141 H Total Protein 4.7 L Albumin 2.5 L Urine Color Urine Appearance Urine pH Ur Specific [place] Urine Protein Urine Glucose (UA) Urine Ketones Urine Blood Urine Nitrite Ur Leukocyte Esterase Assessment and Plan(PN) - Assessment and Plan (1) Anemia affecting Qualifiers: Trimester: unspecified trimester Qualified Code(s): O99.019 - Anemia compli cating , unspecified trimester Is this a current diagnosis for this admission?: Yes (2) Arrest of descent, delivered, current hospitalization Is this a current diagnosis for this admission?: Yes (3) COVID-19 ruled out by laboratory testing Is this a current diagnosis for this admission?: Yes (4) Chorioamnionitis Qualifiers: Trimester: third trimester Is this a current diagnosis for this admission?: Yes (5) Encounter for induction of labor Is this a current diagnosis for this admission?: Yes (7) hemorrhage Qualifiers: hemorrhage type: third-stage Qualified Code(s): O72.0 - Third- stage hemorrhage Is this a current diagnosis for this admission?: Yes (8) S/P primary low transverse Is this a current diagnosis for this admission?: Yes - Time Spent with Patient Time with patient: Less than 15 minutes Medications reviewed and adjusted accordingly: Yes - Disposition Anticipated Discharge Disposition: Home, Self Care Anticipated Discharge Timeframe: within 48 hours
[2020-10-24] MEDS ORDERED: FERRIC CARBOXYMALTOSE 750 MG in NORMAL SALINE 250 ML IV ONE (10:00)
[2020-10-24] MEDS: DOCUSATE SODIUM 100 MG CAPSULE PO SCH ×2 (10:15→18:27)
[2020-10-24] MEDS: PRENATAL VITAMIN W DHA CAPSULE PO SCH (10:15)
[2020-10-24] MEDS: IBUPROFEN 800 MG TABLET PO SCH ×3 (11:31→18:26)
[2020-10-25] MEDS: AMPICILLIN SODIUM 2 GM in NORMAL SALINE 100 ML IV SCH ×3 (00:06→14:15)
[2020-10-25] MEDS: IBUPROFEN 800 MG TABLET PO SCH ×3 (00:07→12:57)
[2020-10-25] MEDS: OXYCODONE-ACETAMINOPHEN 5-325 MG TABLET PO PRN ×4 (00:08→14:43)
[2020-10-25] MEDS: GENTAMICIN SULFATE IV SCH ×2 (01:53→13:14)
[2020-10-25] MEDS: DEXTROSE 5% IV SCH ×2 (01:53→13:14)
[2020-10-25] MEDS: WATER IV SCH ×2 (01:53→13:14)
[2020-10-25] MEDS: KETOROLAC TROMETHAMINE INJ/PF 30 MG/1 ML SDV IV SCH (05:44)
--- NOTE | 2020-10-25 10:22 | PDOC PROGRESS REPORT ---
Subjective-OB Progress Note for:: 10/25/20 Subjective: Doing well, no c/o, OOB to BR, voiding, + BM,eating and drinking well, scant lochia, + BM Physical Exam (OB) Vital Signs: Temp Pulse Resp BP Pulse Ox 97.6 F 108 H 18 125/71 94 10/25/20 07:26 10/25/20 07:26 10/25/20 07:26 10/25/20 07:26 10/25/20 07:26 Intake & Output 10/24/20 10/25/20 10/26/20 06:59 06:59 06:59 Intake Total 4816.487 4620.95 Output Total 700 1600 Balance 504.875 375.95 - PIH/Pre-Eclampsia DTR's: 2 + Clonus: Negative Headache: Absent Epigastric Pain: No Visual Changes: No - Dressing Removed: Yes Incision: Well Approximated Closure Type: Surgical Glue - Bilateral Tubal Ligation Dressing Removed: Yes Site: Well Approximated - Maternal Morbidity 59. Maternal Morbidity (serious complications experinced by the mother associated with labor and delivery: None of the above - Lochia Lochia Amount: Scant < 10 ml Lochia Color: Rubra/Red - Abdomen Description: Tender Hernia Present: No Fundal Description: Firm, Midline Fundal Height: u/u - u/2 Objective-Diagnostic Laboratory: 10/24/20 06:28 10/23/20 23:19 Assessment and Plan(PN) - Assessment and Plan (1) Anemia affecting Qualifiers: Trimester: unspecified trimester Qualified Code(s): O99.019 - Anemia complicating , unspecified trimester Is this a current diagnosis for this admission?: Yes (2) Arrest of descent, delivered, current hospitalization Is this a current diagnosis for this admission?: Yes (3) COVID-19 ruled out by laboratory testing Is this a current diagnosis for this admission?: Yes (4) Chorioamnionitis Qualifiers: Trimester: third trimester Is this a current diagnosis for this admission?: Yes (5) Encounter for induction of labor Is this a current diagnosis for this admission?: Yes (6) Gestational hypertension w/o significant proteinuria in 3rd trimester Is this a current diagnosis for this admission?: Yes (7) hemorrhage Qualifiers: hemorrhage type: third-stage Qualified Code(s): O72.0 - Third- stage hemorrhage Is this a current diagnosis for this admission?: Yes (8) S/P primary low transverse Is this a current diagnosis for this admission?: Yes - Time Spent with Patient Time with patient: Less than 15 minutes Medications reviewed and adjusted accordingly: Yes - Disposition Anticipated Discharge Disposition: Home, Self Care Anticipated Discharge Timeframe: within 24 hours - Discussed with allie Kramer to DC with low H&H, no symptoms, tolerating anemia well, afebrile
--- NOTE | 2020-10-25 10:31 | PDOC DISCHARGE SUMMARY ---
Impression - Admit/DC Date/PCP Admission Date/Primary Care Provider: 10/21/20 10:36 ERIN DOE MD Discharge Date: 10/25/20 - Discharge Diagnosis (1) Anemia affecting Is this a current diagnosis for this admission?: Yes (2) Arrest of descent, delivered, current hospitalization Is this a current diagnosis for this admission?: Yes (3) COVID-19 ruled out by laboratory testing Is this a current diagnosis for this admission?: Yes (4) Chorioamnionitis Is this a current diagnosis for this admission?: Yes (5) Encounter for induction of labor Is this a current diagnosis for this admission?: Yes (6) Gestational hypertension w/o significant proteinuria in 3rd trimester Is this a current diagnosis for this admission?: Yes (7) hemorrhage Is this a current diagnosis for this admission?: Yes (8) S/P primary low transverse Is this a current diagnosis for this admission?: Yes - Additional Information Resuscitation Status: Full Code Discharge Diet: As Tolerated, Regular Discharge Activity: Activity As Tolerated, No Driving, No Lifting Over 10 Pounds, No Lifting/Push/Pulling, Pelvic Rest, No tub bath Referrals: ERIN DOE MD [Primary Care Provider] - ( at [facility]) Prescriptions: Oxycodone HCl/Acetaminophen [Percocet 5-325 mg Tablet] 1 tab PO Q4HP PRN #20 tablet PRN Reason: Ibuprofen [Motrin 800 mg Tablet] 800 mg PO Q6 #30 tablet Home Medications: Ferrous Sulfate [Feosol 325 mg Tablet] 1 tab PO DAILY 10/21/20 Pnv No.95/Ferrous Fum/Folic AC [ Caplet] 1 tab PO DAILY 10/21/20 Ibuprofen [Motrin 800 mg Tablet] 800 mg PO Q6 #30 tablet 10/25/20 Oxycodone HCl/Acetaminophen [Percocet 5-325 mg Tablet] 1 tab PO Q4HP PRN #20 tablet 10/25/20 HPI Gestational Age: 39.5 Reason(s) for Admission: Induction of Labor, PIH Procedures: Ultrasound Intrapartum Procedure Note: arrest of descent, chorio, maternal fever Hospital Course Hospital Course: stable pp course, no fever, anemia 59. Maternal Morbidity (serious complications experinced by the mother associated with labor and delivery: None of the above Results Laboratory Results: WBC 19.1 10^3/uL (4.0-10.5) H 10/24/20 06:28 RBC 2.71 10^6/uL (3.72-5.28) L 10/24/20 06:28 Hgb 8.4 g/dL (12.0-15.5) L 10/24/20 06:28 Hct 24.4 % (36.0-47.0) L 10/24/20 06:28 MCV 90 fl (80-97) 10/24/20 06:28 MCH 31.2 pg (27.0-33.4) 10/24/20 06:28 MCHC 34.7 g/dL (32.0-36.0) 10/24/20 06:28 RDW 17.3 % (11.5-14.0) H 10/24/20 06:28 Plt Count 191 10^3/uL (150-450) 10/24/20 06:28 Lymph % (Auto) 13.5 % (13-45) 10/23/20 15:00 [place] % (Auto) 12.1 % (3-13) 10/23/20 15:00 Eos % (Auto) 0.0 % (0-6) 10/23/20 15:00 Baso % (Auto) 0.2 % (0-2) 10/23/20 15:00 Absolute Neuts (auto) 7.9 10^3/uL (1.7-8.2) 10/23/20 15:00 Absolute Lymphs (auto) 1.5 10^3/uL (0.5-4.7) 10/23/20 15:00 Absolute Monos (auto) 1.3 10^3/uL (0.1-1.4) 10/23/20 15:00 Absolute Eos (auto) 0.0 10^3/uL (0.0-0.6) 10/23/20 15:00 Absolute Basos (auto) 0.0 10^3/uL (0.0-0.2) 10/23/20 15:00 Seg Neutrophils % 74.2 % (42-78) 10/23/20 15:00 Sodium 132.9 mmol/L (137-145) L 10/23/20 23:19 Potassium 3.7 mmol/L (3.6-5.0) 10/23/20 23:19 Chloride 105 mmol/L (98-107) 10/23/20 23:19 Carbon Dioxide 18 mmol/L (22-30) L 10/23/20 23:19 Anion Gap 10 (5-19) 10/23/20 23:19 BUN 8 mg/dL (7-20) 10/23/20 23:19 Creatinine 0.63 mg/dL (0.52-1.25) 10/23/20 23:19 Est GFR ( Amer) > 60 (>60) 10/23/20 23:19 Est GFR (MDRD) Non-Af > 60 (>60) 10/23/20 23:19 Glucose 117 mg/dL (75-110) H 10/23/20 23:19 Uric Acid 5.5 mg/dL (2.5-6.2) 10/23/20 07:00 Calcium 8.4 mg/dL (8.4-10.2) 10/23/20 23:19 Total Bilirubin 0.5 mg/dL (0.2-1.3) 10/23/20 23:19 Direct Bilirubin 0.1 mg/dL (0.0-0.4) 10/23/20 23:19 Neonat Total Bilirubin Not Reportable 10/23/20 23:19 Neonat Direct Bilirubin Not Reportable 10/23/20 23:19 Neonat Indirect Bili Not Reportable 10/23/20 23:19 AST 44 U/L (14-36) H 10/23/20 23:19 ALT 31 U/L (<35) 10/23/20 23:19 Alkaline Phosphatase 141 U/L (38-126) H 10/23/20 23:19 Lactate Dehydrogenase 198 U/L (120-246) 10/23/20 07:00 Total Protein 4.7 g/dL (6.3-8.2) L 10/23/20 23:19 Albumin 2.5 g/dL (3.5-5.0) L 10/23/20 23:19 Urine Color YELLOW 10/23/20 16:49 Urine Appearance SLIGHTLY-CLOUDY 10/23/20 16:49 Urine pH 6.0 (5.0-9.0) 10/23/20 16:49 Ur Specific [place] 1.018 10/23/20 16:49 Urine Protein 100 mg/dL (NEGATIVE) H 10/23/20 16:49 Urine Glucose (UA) NEGATIVE mg/dL (NEGATIVE) 10/23/20 16:49 Urine Ketones 80 mg/dL (NEGATIVE) H 10/23/20 16:49 Urine Blood LARGE (NEGATIVE) H 10/23/20 16:49 Urine Nitrite NEGATIVE (NEGATIVE) 10/23/20 16:49 Urine Bilirubin NEGATIVE (NEGATIVE) 10/23/20 16:49 Urine Urobilinogen 4.0 mg/dL (<2.0) H 10/23/20 16:49 Ur Leukocyte Esterase MODERATE (NEGATIVE) H 10/23/20 16:49 Urine Creatinine 73.0 mg/dL (16-327) 10/21/20 10:55 Protein/Creatinin Ratio 0.2 mg/mg (0.0-0.2) 10/21/20 10:55 Urine Total Protein 15.1 mg/dL (<12) H 10/21/20 10:55 Urine Ascorbic Acid NEGATIVE (NEGATIVE) 10/23/20 16:49 Urine Opiates Screen NEGATIVE 10/21/20 10:55 Urine Methadone Screen NEGATIVE 10/21/20 10:55 Ur Barbiturates Screen NEGATIVE 10/21/20 10:55 Ur Phencyclidine Scrn NEGATIVE 10/21/20 10:55 Ur Amphetamines Screen NEGATIVE 10/21/20 10:55 U Benzodiazepines Scrn NEGATIVE 10/21/20 10:55 Urine Cocaine Screen NEGATIVE 10/21/20 10:55 U Marijuana (THC) Screen NEGATIVE 10/21/20 10:55 RPR NONREACTIVE (NONREACTIVE) 10/21/20 11:20 Influenza A (RT-PCR) NEGATIVE (NEGATIVE) 10/23/20 14:30 Influenza B (RT-PCR) NEGATIVE (NEGATIVE) 10/23/20 14:30 RSV (RT-PCR) NEGATIVE (NEGATIVE) 10/23/20 14:30 SARS-CoV-2 Rap RNA(RT-PCR) NEGATIVE (NEGATIVE) 10/23/20 14:30 Blood Type O POSITIVE 10/21/20 11:20 Antibody Screen NEGATIVE 10/21/20 11:20 Impressions: Abdomen/Pelvis CT 10/23/20 22:25 IMPRESSION: There are postsurgical changes from recent section noted. The visualized portions of the right ureter unremarkable. The mid to distal left ureter is not visualized. No contrast extravasation is seen. There is moderate bilateral hydroureteronephrosis suggested. Plan Health Concerns: anemia, pain control, infection Plan of Treatment: dc home after consult with Dr. Mcwilliams, Iron BID, pain meds, rv S&S to report Goals: no complications Time Spent: Less than 30 Minutes
[2020-10-25] MEDS: DOCUSATE SODIUM 100 MG CAPSULE PO SCH (10:37)
[2020-10-25] MEDS: PRENATAL VITAMIN W DHA CAPSULE PO SCH (10:37)
[2020-10-25 11:28] VITALS: BP 131/72
[2020-10-25 12:21] LABS: HEMATOCRIT 23.3 % (36.0-47.0); MEAN CORPUSCULAR HEMOGLOBIN 30.3 pg (27.0-33.4); MEAN CORPUSCULAR HGB CONC 33.6 g/dL (32.0-36.0); MEAN CORPUSCULAR VOLUME 90 fl (80-97); PLATELET COUNT 211 10^3/uL (150-450); RED BLOOD COUNT 2.59 10^6/uL (3.72-5.28); RED CELL DISTRIBUTION WIDTH 17.1 % (11.5-14.0)
[2020-10-25 12:33] LABS: HEMOGLOBIN 7.8 g/dL (12.0-15.5)
== END 2020-10-25 17:41 | disposition home or self-care (01) | DRG 786 ==
LOC: LAB 10:29 → LR 10:36 → 2S 10-24 00:41
PROVIDERS: ADMIT Obstetrics & Gynecology; ATTEND Obstetrics & Gynecology
PROC: 3E0P7VZ Introduction of Hormone into Female Reproductive, Via Natural or Artificial Opening (ICD-10-PCS; 2020-10-21)
PROC: 10D00Z1 Extraction of Products of Conception, Low, Open Approach (ICD-10-PCS; principal; 2020-10-23)
DX: O13.4 Gestational [pregnancy-induced] hypertension without significant proteinuria, complicating childbirth (principal); O41.1230 Chorioamnionitis, third trimester, not applicable or unspecified; Z20.828 Contact with and (suspected) exposure to other viral communicable diseases; O99.02 Anemia complicating childbirth; D64.9 Anemia, unspecified; O32.4XX0 Maternal care for high head at term, not applicable or unspecified; O72.1 Other immediate postpartum hemorrhage; O69.81X0 Labor and delivery complicated by cord around neck, without compression, not applicable or unspecified; O76 Abnormality in fetal heart rate and rhythm complicating labor and delivery; Z3A.39 39 weeks gestation of pregnancy; Z37.0 Single live birth
CPT/HCPCS: 36415; 74178; 80053; 80307; 81005; 82570; 83615; 84156; 84550; 85025; 85027; 86592; 86850; 86900; 86901; 87070; 88307; 94760; 94799; 0241U; C9803; J0131; J0290; J0690; J1439; J1580; J1885; J2210; J2250; J2270; J2300; J2405; J2550; J2590; J2795; J3010; J3490; J7050; J7060; J7120